=== PATIENT | male | born 1955 | race African-American/Black ===

== ENCOUNTER 2018-04-23 08:47 | Emergency (ER) | payer OTHER ==
[~2018-04-23] VITALS: Ht 149.9 cm; Wt 95.3 kg
[2018-04-23] MEDS ORDERED: STERILE SALINE126 ML (09:22)
[2018-04-23] MEDS ORDERED: NORVASC2.5 M1 (09:22)
== END 2018-04-23 13:24 | disposition home or self-care (01) ==
LOC: ER 08:47
DX: K29.70 Gastritis, unspecified, without bleeding (principal); R10.12 Left upper quadrant pain